=== PATIENT | female | born 1980 | race African-American/Black ===

== ENCOUNTER 2022-03-18 21:39 | Emergency (ER) | payer BC ==
[~2022-03-18] VITALS: Ht 165.1 cm; Wt 66.0 kg
[2022-03-18 21:56] VITALS: BP 120/87
[2022-03-18 23:38] LABS: BASOPHILS % 0.5 % (0.0-2.0); HEMATOCRIT. 34.5 % (36.0-48.0); HEMOGLOBIN. 11.4 g/dL (12.0-16.0); LYMPHOCYTES % 31.7 % (20.0-50.0); MEAN CORPUSCULAR HEMOGLOBIN 27.7 pg (28.0-32.0); MEAN CORPUSCULAR VOLUME 83.9 fL (81.0-99.0); MEAN PLATELET VOLUME 7.3 fl (7.4-10.4); MONOCYTES % 9.4 % (2.0-8.0); NEUTROPHILS % 53.4 % (40.0-76.0); PLATELET 340 x1000/uL (130-400); RED BLOOD CELL COUNT 4.11 mill/uL (4.2-5.4); RED CELL DISTRIBUTION WIDTH 14.3 % (11.6-14.6)
[2022-03-19 00:39] LABS: CHLORIDE 105 mEq/L (98-107)
[2022-03-19] MEDS ORDERED: ACETAMINOPHEN 325MG TABLET PO STA (00:43)
[2022-03-19] MEDS ORDERED: FAMOTIDINE 20MG TABLET PO ONE (00:45)
== END 2022-03-19 04:45 | disposition left against medical advice (07) ==
LOC: ER 21:39 → EDBD 21:39 → ER 03-19 04:45
DX: R07.89 Other chest pain (principal)
CPT/HCPCS: 36415; 71045; 80053; 83880; 84484; 85025; 93005; 99285

== ENCOUNTER 2022-08-17 17:14 | Emergency (ER) | payer BC ==
[~2022-08-17] VITALS: Ht 165.1 cm; Wt 75.0 kg
[2022-08-17 17:32] VITALS: BP 129/86
[2022-08-17] MEDS ORDERED: ACETAMINOPHEN 325MG TABLET PO ONE (21:30)
== END 2022-08-17 21:34 | disposition home or self-care (01) ==
LOC: ER 17:14
DX: U07.1 COVID-19 (principal)
CPT/HCPCS: 99282

== ENCOUNTER 2023-11-22 12:17 | Emergency (ER) | payer BC, OTHER | END 2023-11-22 13:00 | disposition left against medical advice (07) | LOC: ER 12:30 | DX: Z76.89 Persons encountering health services in other specified circumstances (principal); Z53.21 Procedure and treatment not carried out due to patient leaving prior to being seen by health care provider | CPT/HCPCS: 99281 ==